=== PATIENT | female | born 1990 | race Caucasian/White ===

== ENCOUNTER 2016-12-18 01:14 | Emergency (ER) | payer SELFPAY ==
[~2016-12-18] VITALS: Ht 175.3 cm; Wt 114.0 kg
[2016-12-18 01:33] VITALS: BP 140/83; PULSE 80; RESP 17; TEMP 98.1; O2SAT 98
[2016-12-18] MEDS ORDERED: ONDANSETRON HCL 4 MG/2 ML VIAL IV PUSH ONE (02:00)
[2016-12-18] MEDS ORDERED: SODIUM CHLOR 0.9% 1000 ML INJ 1,000 ML IV ONE (02:00)
[2016-12-18 02:15] LABS: BASOPHIL # 0.1 TH/MM3 (0-0.2); BASOPHIL % 0.5 % (0.0-2.0); EOSINOPHIL # 0.1 TH/MM3 (0-0.4); EOSINOPHIL % 1.1 % (0.0-4.0); HEMATOCRIT 38.8 % (35.0-46.0); HEMO FLAGS DIFF FINAL; LYMPH % 32.1 % (9.0-44.0); LYMPHOCYTE # 3.7 TH/MM3 (1.0-4.8); MEAN CELL VOLUME 80.3 FL (80.0-100.0); MEAN CORPUSCULAR HEMOGLOBIN 26.5 PG (27.0-34.0); MONO % 6.5 % (0.0-8.0); NEUT % 59.8 % (16.0-70.0); PLATELET COUNT 353 TH/MM3 (150-450); RED BLOOD COUNT 4.84 MIL/MM3 (4.00-5.30); RED CELL DISTRIBUTION WIDTH 14.9 % (11.6-17.2); WHITE BLOOD COUNT 11.7 TH/MM3 (4.0-11.0)
[2016-12-18 02:33] LABS: ALKALINE PHOSPHATASE 82 U/L (45-117); TOTAL BILIRUBIN ADULT 0.3 MG/DL (0.2-1.0)
[2016-12-18 02:34] LABS: ALT (GPT) 37 U/L (10-53); ANION GAP 7 MEQ/L (5-15); AST (GOT) 25 U/L (15-37); BICARBONATE 25.8 MEQ/L (21.0-32.0); BLOOD UREA NITROGEN 7 MG/DL (7-18); CHLORIDE 107 MEQ/L (98-107); GLOMERULAR FILTRATION RATE 95 ML/MIN (>89); POTASSIUM 3.5 MEQ/L (3.5-5.1); SODIUM (NA) 140 MEQ/L (136-145)
--- NOTE | 2016-12-18 02:34 | RADRPT ---
EXAM DATE/TIME: 12/18/2016 02:14 [facility] COMPARISON: No previous studies available for comparison. INDICATIONS : Shortness of breath. MEDICAL HISTORY : None. SURGICAL HISTORY : None. ENCOUNTER: Initial ACUITY: 1 day PAIN SCORE: 0/10 LOCATION: Bilateral chest FINDINGS: PA and lateral views of the chest demonstrate no focal consolidation or effusion. Heart size within n ormal limits. Calcified left hilar lymph nodes most characteristic of remote granulomatous disease. CONCLUSION: 1. No acute findings. Christophe Garsia MD on December 18, 2016 at 2:32 Board Certified Radiologist. This report was verified electronically.
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
[2016-12-18 04:09] VITALS: BP 108/63
== END 2016-12-18 04:10 | disposition home or self-care (01) ==
LOC: NEPE 01:14
DX: R42 Dizziness and giddiness (principal)
CPT/HCPCS: 71020; 80053; 84703; 85025; 96361; 96374; 99284; J2405; J7030

== ENCOUNTER 2017-01-11 14:00 | Emergency (ER) | payer SELFPAY ==
[~2017-01-11] VITALS: Ht 175.3 cm; Wt 115.0 kg
[2017-01-11 14:01] VITALS: BP 138/82; PULSE 78; RESP 15; TEMP 98.1; O2SAT 96
[2017-01-11 15:38] VITALS: BP 142/76; PULSE 83; RESP 20; O2SAT 97
[2017-01-11] MEDS ORDERED: ONDANSETRON ODT 4 MG TAB PO ONE (15:45)
[2017-01-11] MEDS ORDERED: ACETAMINOPHEN/HYDROcodone 325 MG/5 MG TAB PO ONE (15:45)
--- NOTE | 2017-01-11 16:02 | PD ---
HPI Chief Complaint: Complaint Time Seen by Provider: 15:17 Travel History International Travel<30 days: No Contact w/Intl Traveler<30days: No Traveled to known affect area: No History of Present Illness HPI 26 yo female that presents to the ED for evaluation of possible kidney stone. Patient was seen at the urgent care [facility] and was told to come here for possible kidney stone. Patient has been having left flank pain for the past 4 days. Patient reports that the pain is 6 out of 10. Comes and goes. Radiates to the abdomen. No dysuria or polyuria. She was seen at the urgent care and had a urine that shows some blood and she was concerned for possible kidney stones that she was brought here for evaluation and possible CAT scan. She has no allergies to medication. She'll be taking [id number] remedies with minimal relief. No vaginal discharge or . No bowel movement issues. No history of kidney stones in the past in herself. PFSH Past Medical History Anxiety: Yes Diminished Hearing: No Medical other: Yes (ENDOMETRIOSIS) ?: Not LMP: 01/04/17 Past Surgical History Surgical History: No Previous Surgery Social History Alcohol Use: No Tobacco Use: No Substance Use: No Allergies-Medications (Allergen,Severity, Reaction): Coded Allergies: No Known Allergies (Unverified , 01/11/17) Reported Meds & Prescriptions Reported Meds & Active Scripts Active Lortab (Hydrocodone-Acetaminophen) 5-325 Mg Tab 1 Tab PO Q6H PRN Zofran (Ondansetron HCl) 4 Mg Tab 4 Mg PO Q6HR PRN Cipro (Ciprofloxacin HCl) 500 Mg Tab 500 Mg PO BID 10 Days Flagyl (Metronidazole) 500 Mg Tab 500 Mg PO BID 10 Days Review of Systems Except as stated in HPI: all other systems reviewed are Neg Physical Exam Narrative GENERAL: SKIN: Warm and dry. HEAD: Atraumatic. Normocephalic. EYES: Pupils equal and round. No scleral icterus. No injection or drainage. ENT: No nasal bleeding or discharge. Mucous membranes pink and moist. Tongue is midline. No uvula deviation. NECK: Trachea midline. No JVD. CARDIOVASCULAR: Regular rate and rhythm. No murmurs, S3, S4. RESPIRATORY: No accessory muscle use. Clear to auscultation. Breath sounds equal bilaterally. GASTROINTESTINAL: Abdomen soft, non-tender, nondistended. Hepatic and splenic margins not palpable. Patient does have reproducible CVA tenderness on the left. MUSCULOSKELETAL: Extremities without clubbing, cyanosis, or edema. No obvious deformities. Full range of motion of the upper and lower extremities bilaterally. 2+ pulses bilaterally. NEUROLOGICAL: Awake and alert. No obvious cranial nerve deficits. Motor grossly within normal limits. Five out of 5 muscle strength in the arms and legs. Normal speech. PSYCHIATRIC: Appropriate mood and affect; insight and judgment normal. Data Data Last Documented VS Vital Signs Date Time Temp Pulse Resp B/P (MAP) Pulse Ox O2 Delivery O2 Flow Rate FiO2 01/11/17 16:21 77 18 163/83 (109) 98 Room Air 01/11/17 14:01 98.1 Orders Orders Urinalysis - C+S If Indicated (01/11/17 15:14) Ed Urine Pregnancytest Poc (01/11/17 15:14) Ct Abd/Pel W/O Iv Contrast (01/11/17 ) Ondansetron Odt (Zofran Odt) (01/11/17 15:45) Acetamin-Hydrocod 325-5 Mg ([place] 5-325 (01/11/17 15:45) Labs Laboratory Tests Test 01/11/17 15:35 Urine Color YELLOW Urine Turbidity HAZY Urine pH 6.0 Urine Specific [place] 1.020 Urine Protein TRACE mg/dL Urine Glucose (UA) NEG mg/dL Urine Ketones NEG mg/dL Urine Occult Blood TRACE Urine Nitrite NEG Urine Bilirubin NEG Urine Urobilinogen LESS THAN 2.0 MG/DL Urine Leukocyte Esterase SMALL Urine RBC 3 /hpf Urine WBC 5 /hpf Urine Squamous Epithelial Cells 7 /hpf Urine Mucus FEW /lpf Microscopic Urinalysis Comment CULT NOT INDICATED MDM Medical Decision Making Medical Screen Exam Complete: Yes Emergency Medical Condition: Yes Medical Record Reviewed: Yes Interpretation(s) Last Impressions Abdomen/Pelvis CT 01/11/17 0000 Signed Impressions: Service Date/Time: Wednesday, January 11, 2017 15:59 - CONCLUSION: 1. Epiploic appendagitis involving the pericolonic fat at the level of the descending colon. 2. Steatosis of the liver. Young Mason MD UA shows blood Differential Diagnosis Kidney stone versus pyelonephritis versus flank pain versus UTI Narrative Course 26-year-old female that presents to the ED for evaluation of left flank pain. Patient was properly examined and was found to have signs and symptoms concerning for kidney stone. Labs and imaging were ordered. Labs and imaging showed some blood in the urine otherwise unremarkable. CT did showed Epiploic appendicitis. Case was discussed in my attending who recommends treatment with antibiotics as well as pain medication and antiemetics. Patient was given prescription for this. Patient agrees with this plan. Patient was told to liquid diet until better. See ED worsening symptoms. Follow up with PCP. Diagnosis Primary Impression: Epiploic appendagitis Patient Instructions: General Instructions Additional Instructions: Take medication as prescribed. Do not drink and trouble taking pain medication. Liquid diet until better. Follow with PCP. See ED worsening symptoms. Med/Other Pt SpecificInfo: Prescription(s) given Scripts Hydrocodone-Acetaminophen (Lortab) 5-325 Mg Tab 1 TAB PO Q6H Y for PAIN, #10 TAB 0 Refills Prov: Jonathon Nino MD 01/11/17 Ondansetron (Zofran) 4 Mg Tab 4 MG PO Q6HR Y for NAUSEA OR VOMITING, #15 TAB 0 Refills Prov: Jonathon Nino MD 01/11/17 Ciprofloxacin (Cipro) 500 Mg Tab 500 MG PO BID for Infection for 10 Days, #20 TAB 0 Refills Prov: Jonathon Nino MD 01/11/17 Metronidazole (Flagyl) 500 Mg Tab 500 MG PO BID for Infection for 10 Days, #20 TAB 0 Refills Prov: Jonathon Nino MD 01/11/17 Disposition: 01 DISCHARGE HOME Condition: Stable Jesse Oropeza Jan 11, 2017 16:02
[2017-01-11 16:03] LABS: BLOOD, URINE TRACE (NEG); COMMENT (UR) CULT NOT INDICATED; CULTURE IF INDICATED CULT NOT INDICATED; GLUCOSE,URINE NEG (NEG); KETONE, URINE NEG (NEG); MUCUS URINE FEW /lpf (OCC); NITRITE,URINE NEG (NEG); SQUAMOUS EPITHELIAL CELL URINE 7 /hpf (0-5); URINE COLOR YELLOW (YELLW/STRAW)
[2017-01-11 16:21] VITALS: BP 163/83; PULSE 77; RESP 18; O2SAT 98
--- NOTE | 2017-01-11 16:26 | RADRPT ---
EXAM DATE/TIME: 01/11/2017 15:59 [facility] COMPARISON: No previous studies available for comparison. INDICATIONS : Left flank pain today. ORAL CONTRAST: No oral contrast ingested. RADIATION DOSE: 28.96 CTDIvol (mGy) ; Patient body habitus MEDICAL HISTORY : None SURGICAL HISTORY : None. ENCOUNTER: Initial ACUITY: 1 day PAIN SCALE: 7/10 LOCATION: Left flank TECHNIQUE: Volumetric scanning of the abdomen and pelvis was performed. Using automated exposure control and ad justment of the mA and/or kV according to patient size, radiation dose was kept as low as reasonably achievable to obtain optimal diagnostic quality images. DICOM format image data is available electro nically for review and comparison. FINDINGS: There is a non-calcified nodule in the left lower lobe measuring 6.7 mm on image 2. The osseous structures are intact. There is diffuse decreased density of the liver characteristic of hepatic stea tosis with a few focal areas of fatty sparing. A calcified granuloma in the spleen is noted. Pancreas , adrenal glands, stomach unremarkable. Urinary bladder, uterus and ovaries are unremarkable. No evid ence of bowel obstruction. There is mild stranding of the pericolonic fat at the level of the mid jonah cending colon on axial image 66 without adjacent bowel wall thickening. Coronal images best demonstra te an ovoid fat attenuation structure with a punctate central area of high density on the coronal christine ge 55. These findings are characteristic of epiploic appendagitis. There is no evidence for perforati on or abscess. The appendix is normal. CONCLUSION: 1. Epiploic appendagitis involving the pericolonic fat at the level of the descending colon. 2. Steatosis of the liver. Young Mason MD on January 11, 2017 at 16:21 Board Certified Radiologist. This report was verified electronically.
[2017-01-11] MEDS ORDERED: ZOFR4TAB PO (16:43)
[2017-01-11] MEDS ORDERED: METR-1 PO (16:43)
[2017-01-11] MEDS ORDERED: HYDR-3533 PO (16:43)
[2017-01-11] MEDS ORDERED: CIPR-9 PO (16:43)
== END 2017-01-11 17:27 | disposition home or self-care (01) ==
LOC: NEPC 14:00
DX: K63.89 Other specified diseases of intestine (principal)
CPT/HCPCS: 74176; 81001; 84703; 99285